=== PATIENT | male | born 1935 | race African-American/Black ===

== ENCOUNTER 2022-11-05 11:48 | Emergency (ER) | payer MEDICARE, OTHER ==
[~2022-11-05] VITALS: Ht 175.3 cm; Wt 57.0 kg
[~2022-11-05 11:48] MED LIST: ASPI81TA43; LISI-651; LOSA50TA3; TERA2CAP4
[2022-11-05] MEDS ORDERED: NITROGLYCERIN 0.4MG TABLET SL SL PRN (12:45)
[2022-11-05] MEDS ORDERED: ASPIRIN 81MG TABLET PO ONE ×2 (12:45→16:51)
[2022-11-05] MEDS ORDERED: AMLODIPINE 5MG TABLET PO ONE ×2 (13:00→16:51)
[2022-11-05 14:30] LABS: HEMATOCRIT. 46.8 % (42.0-52.0); HEMOGLOBIN. 15.7 g/dL (14.0-18.0); MEAN CORPUSCULAR VOLUME 92.7 fL (80.0-94.0); RED BLOOD CELL COUNT 5.05 mill/uL (4.7-6.1)
[2022-11-05 14:41] LABS: CHLORIDE 90 mEq/L (98-107)
[2022-11-05] MEDS ORDERED: AZITHROMYCIN 500MG/250ML 250 ML IV ONE (16:45)
[2022-11-05] MEDS ORDERED: CEFTRIAXONE 1 G PREMIX 50 ML IV ONE (16:45)
[2022-11-05] MEDS ORDERED: SODIUM CHLORIDE 0.9% 1000ML BAG (SEPSIS BOLUS) IV ONE (16:45)
[2022-11-05 17:36] LABS: CLARITY URINE CLEAR (CLEAR); COLOR URINE YELLOW (YELLOW); KETONES URINE NEGATIVE (NEGATIVE); LEUKOCYTE ESTERASE URINE NEGATIVE (NEGATIVE); NITRITE URINE NEGATIVE (NEGATIVE); OCCULT BLOOD URINE NEGATIVE (NEGATIVE); PH URINE 7.5 (4.5-8.0); PROTEIN URINE NEGATIVE (NEGATIVE); SPECIFIC GRAVITY URINE 1.007 (1.005-1.030); UROBILINOGEN URINE 0.2 E.U./dL (0.2-1.0)
[2022-11-05 19:06] VITALS: BP 161/118
== END 2022-11-05 19:14 ==
LOC: ER 11:48
DX: R07.89 Other chest pain (principal); I10 Essential (primary) hypertension; J18.9 Pneumonia, unspecified organism; Z20.822 Contact with and (suspected) exposure to COVID-19
CPT/HCPCS: 36415; 71045; 80053; 81003; 83605; 83735; 83880; 84484; 85025; 87040; 87086; 87426; 93005; 96365; 96366; 99285; C9803; J0456; J0696; J7030; Z7610

== ENCOUNTER 2022-11-09 16:37 | Emergency (ER) | payer MEDICARE, OTHER ==
[~2022-11-09] VITALS: Ht 177.8 cm; Wt 50.0 kg
[2022-11-09] MEDS ORDERED: LOSARTAN POTASSIUM 50 MG TABLET PO SCH (18:30)
[2022-11-09 21:18] VITALS: BP 196/118
== END 2022-11-09 21:22 | disposition home or self-care (01) ==
LOC: ER 16:37
DX: I10 Essential (primary) hypertension (principal); Z91.14 Patient's other noncompliance with medication regimen; F03.90 Unspecified dementia, unspecified severity, without behavioral disturbance, psychotic disturbance, mood disturbance, and anxiety
CPT/HCPCS: 71045; 99283

== ENCOUNTER 2023-09-17 11:54 | Emergency (ER) | payer MEDICARE, OTHER ==
[~2023-09-17] VITALS: Ht 175.3 cm; Wt 55.0 kg
[~2023-09-17 11:54] MED LIST changes: +LOSA-413; -LOSA50TA3
[2023-09-17 12:02] VITALS: TEMP 98.1; O2SAT 98
[2023-09-17 13:02] LABS: BASOPHILS % 0.4 % (0.0-2.0); EOSINOPHILS % 0.7 % (0.0-5.0); HEMATOCRIT. 40.7 % (42.0-52.0); HEMOGLOBIN. 13.7 g/dL (14.0-18.0); LYMPHOCYTES % 29.7 % (20.0-50.0); MEAN CORPUSCULAR HEMOGLOBIN 30.8 pg (28.0-32.0); MEAN CORPUSCULAR HGB CONC 33.6 g/dL (31.0-37.0); MEAN CORPUSCULAR VOLUME 91.7 fL (80.0-94.0); MEAN PLATELET VOLUME 7.3 fl (7.4-10.4); MONOCYTES % 10.8 % (2.0-8.0); NEUTROPHILS % 58.4 % (40.0-76.0); PLATELET 225 x1000/uL (130-400); RED BLOOD CELL COUNT 4.44 mill/uL (4.7-6.1); RED CELL DISTRIBUTION WIDTH 12.8 % (11.6-14.6)
[2023-09-17 13:22] LABS: ALANINE AMINOTRANSFERASE < 7 IU/L (10-49); ALBUMIN 3.9 g/dL (3.2-4.8); ASPARTATE AMINOTRANSFERASE 18 IU/L (<34); BILIRUBIN TOTAL 0.4 mg/dL (0.1-1.0); CALCIUM 8.8 mg/dL (8.7-10.4); CARBON DIOXIDE 29 mEq/L (21-32); CHLORIDE 103 mEq/L (98-107); CREATININE 0.7 mg/dL (0.6-1.3); GLUCOSE 96 mg/dL (70-105); POTASSIUM 3.9 mEq/L (3.5-5.1); PROTEIN TOTAL 6.7 g/dL (6.0-8.3); SODIUM 135 mEq/L (136-145); TROPONIN I HIGH SENSITIVITY 6 ng/L (3.0-53); UREA NITROGEN BLOOD 10 mg/dL (9-23)
[2023-09-17 13:23] LABS: INR 1.1; PROTHROMBIN TIME 11.4 sec (9.6-11.0)
[2023-09-17 14:12] VITALS: BP 178/77; PULSE 92; RESP 15
== END 2023-09-17 16:03 | disposition home or self-care (01) ==
LOC: ER 12:09
DX: I10 Essential (primary) hypertension (principal); F19.90 Other psychoactive substance use, unspecified, uncomplicated
CPT/HCPCS: 36415; 71045; 80053; 83880; 84484; 85025; 93005; 99285